=== PATIENT | female | born 1970 | race Caucasian/White ===

== ENCOUNTER 2020-12-14 13:17 | Observation (INO) ==
[2020-12-14] MEDS ORDERED: Perflutren Lipid Microsphere 1.3 ML in 0.9 % Sodium Chloride 8.7 ML IVP PRN (16:14)
[2020-12-14] MEDS ORDERED: Naloxone 0.4 MG/ML INJ IVP PRN (16:14)
[2020-12-14] MEDS ORDERED: Ondansetron ODT 4 MG TAB.RAPDIS SL PRN (16:14)
[2020-12-14] MEDS ORDERED: Mag Hydrox/Al Hydrox/Simeth 30 ML UDC PO PRN (16:14)
[2020-12-14] MEDS ORDERED: MOM Conc 10 ML UD.LIQ PO PRN (16:14)
[2020-12-14] MEDS: Acetaminophen 325 MG TABLET PO PRN ×2 (17:56→22:53)
[2020-12-15 04:52] LABS: Hematocrit 41.4 % (35.3-44.9); Hemoglobin 13.5 g/dL (11.5-15.4); Mean Corpuscular HGB Conc 32.6 g/dL (31.6-35.5); Mean Corpuscular Hemoglobin 29.5 pg (28.0-33.3); Mean Corpuscular Volume 90.6 fL (83.0-100.0); Mean Platelet Volume 11.3 fL (9.4-12.4); Platelet Count 240 K/mcL (140-400); Red Blood Count 4.57 M/mcL (3.82-4.97); White Blood Count 5.9 K/mcL (4.3-11.1)
[2020-12-15 05:09] LABS: BUN/Creatinine Ratio 19 (6-26); Blood Urea Nitrogen 18 mg/dL (6-20); Calcium 8.9 mg/dL (8.6-10.3); Carbon Dioxide 27 mEq/L (23-29); Chloride 106 mEq/L (98-107); Glucose 112 mg/dL (70-105); Magnesium 2.1 mg/dL (1.6-2.6); Osmolality,Calculated 293 (280-300); Potassium 4.2 mEq/L (3.5-5.1); Sodium 140 mEq/L (136-145); eGFR For African Americans > 60 (> 60); eGFR For Non-African Americans > 60 (> 60)
[2020-12-15] MEDS ORDERED: *HR* Enoxaparin 40 MG/0.4 ML SYRINGE SQ SCH (06:00)
[2020-12-15] MEDS ORDERED: Regadenoson 0.4 MG/5 ML SYRINGE IVP ONE (06:39)
[2020-12-15] MEDS ORDERED: Aspirin 81 MG TAB.CHEW PO SCH (09:00)
[2020-12-15 09:01] LABS: Chol/HDL Ratio 3.8 (0-4.9); Cholesterol 173 mg/dL (< 200); HDL Cholesterol 46 mg/dL (40-59); LDL Cholesterol,Calculated 103 mg/dL (< 100); Triglycerides 121 mg/dL (< 150)
[2020-12-15 09:22] LABS: Estimated Average Glucose 120 mg/dl; Hemoglobin A1C 5.8 %
[2020-12-15 10:37] VITALS: BP 135/79
== END 2020-12-15 17:45 | disposition home or self-care (01) ==
LOC: 3BNU → SUATTDRO 15:47
PROVIDERS: ADMIT Internal Medicine; ATTEND Internal Medicine

== ENCOUNTER 2022-03-13 09:45 | Observation (INO) ==
[2022-03-13 11:38] LABS: Basophils % 0.6 %; Eosinophils # 0.2 K/mcL (0.0-0.6); Eosinophils % 3.9 %; Immature Granulocytes % 0.4 % (0-4); Lymphocytes # 1.7 K/mcL (0.6-4.6); Lymphocytes % 34.3 %; Mean Corpuscular HGB Conc 32.5 g/dL (31.6-35.5); Mean Corpuscular Volume 89.1 fL (83.0-100.0); Mean Platelet Volume 11.5 fL (9.4-12.4); Monocytes # 0.4 K/mcL (0.0-1.3); Monocytes % 8.1 %; Neutrophils # 2.6 K/mcL (1.6-8.9); Platelet Count 204 K/mcL (140-400); Red Blood Count 4.49 M/mcL (3.82-4.97); Red Cell Distribution Width 13.5 % (11.5-14.5); Segmented Neutrophils % 52.7 %; White Blood Count 4.8 K/mcL (4.3-11.1)
[2022-03-13 11:53] LABS: Calcium 9.4 mg/dL (8.6-10.3); Potassium 3.9 mEq/L (3.5-5.1)
[2022-03-13] MEDS ORDERED: diazePAM 5 MG TABLET PO ONE (12:53)
[2022-03-13] MEDS ORDERED: Metoclopramide 10 MG/2 ML VIAL IVP ONE (14:10)
[2022-03-13] MEDS ORDERED: Iopamidol - 370 500 ML MLS IVP ONE (14:11)
[2022-03-13] MEDS ORDERED: Scopolamine Patch 1.5 MG PATCH.TD72 TD ONE (16:10)
[2022-03-13] MEDS ORDERED: Acetaminophen 325 MG TABLET PO PRN (16:53)
[2022-03-13] MEDS ORDERED: Ondansetron 4 MG/2 ML VIAL IVP PRN (16:53)
[2022-03-13] MEDS ORDERED: Naloxone 0.4 MG/ML INJ IVP PRN (16:53)
[2022-03-14] MEDS ORDERED: *HR* Enoxaparin 40 MG/0.4 ML SYRINGE SQ SCH (06:00)
[2022-03-14 07:12] VITALS: BP 122/80; PULSE 83; TEMP 97.9; O2SAT 92
== END 2022-03-14 12:40 | disposition home or self-care (01) ==
LOC: 3BNU 09:45 → EMEROOARM 09:45 → 3BNU 17:50
PROVIDERS: ADMIT Internal Medicine; ATTEND Internal Medicine

== ENCOUNTER 2022-03-22 10:27 | Observation (INO) ==
[2022-03-22 11:09] LABS: Basophils % 0.4 %; Eosinophils # 0.2 K/mcL (0.0-0.6); Eosinophils % 2.1 %; Hematocrit 44.4 % (35.3-44.9); Hemoglobin 14.4 g/dL (11.5-15.4); Immature Granulocytes % 0.3 % (0-4); Lymphocytes # 1.8 K/mcL (0.6-4.6); Lymphocytes % 24.7 %; Mean Corpuscular HGB Conc 32.4 g/dL (31.6-35.5); Mean Corpuscular Hemoglobin 28.6 pg (28.0-33.3); Mean Corpuscular Volume 88.3 fL (83.0-100.0); Monocytes # 0.4 K/mcL (0.0-1.3); Monocytes % 6.1 %; Neutrophils # 4.8 K/mcL (1.6-8.9); Platelet Count 242 K/mcL (140-400); Red Blood Count 5.03 M/mcL (3.82-4.97); Red Cell Distribution Width 13.3 % (11.5-14.5); Segmented Neutrophils % 66.4 %; White Blood Count 7.2 K/mcL (4.3-11.1)
[2022-03-22 11:28] LABS: BUN/Creatinine Ratio 16 (6-26); Blood Urea Nitrogen 15 mg/dL (6-20); Calcium 10.1 mg/dL (8.6-10.3); Carbon Dioxide 29 mEq/L (23-29); Chloride 103 mEq/L (98-107); Glucose 113 mg/dL (70-105); Osmolality,Calculated 294 (280-300); Potassium 3.4 mEq/L (3.5-5.1); Sodium 141 mEq/L (136-145); Troponin I < 0.03 ng/mL (< 0.04)
[2022-03-22 12:38] LABS: Prothrombin Time 11.2 Seconds (9.4-12.1)
[2022-03-22 12:40] LABS: Activated Partial Thrombo Time 34.6 Seconds (26.0-36.0)
[2022-03-22] MEDS ORDERED: Morphine Sulfate 2 MG/ML SYRINGE IVP ONE ×2 (12:49→16:04)
[2022-03-22] MEDS ORDERED: Ondansetron 4 MG/2 ML VIAL IVP STA (12:49)
[2022-03-22] MEDS ORDERED: 0.9 % Sodium Chloride 1,000 ML IV ONE (12:49)
[2022-03-22] MEDS ORDERED: Famotidine 20 MG/2 ML VIAL IVP ONE ×2 (12:49→21:01)
[2022-03-22 14:11] LABS: Alanine Aminotransferase 9 Units/L (7-52); Albumin 4.2 g/dL (3.5-5.7); Albumin/Globulin Ratio 1.6 (1.1-2.2); Alkaline Phosphatase 76 Units/L (34-104); Aspartate Amino Transferase 13 Units/L (13-39); Bilirubin,Indirect 0.3 mg/dL (0.0-1.0); Bilirubin,Total 0.3 mg/dL (0.3-1.0); Globulin 2.7 g/dL (2.4-3.5); Lipase 15 Units/L (11-82); Total Protein 6.9 g/dL (6.4-8.9)
[2022-03-22] MEDS ORDERED: Piperacillin/Tazobactam 3.375 GM in 0.9 % Sodium Chloride Mini Bag 100 ML IVPB ONE (16:04)
[2022-03-22] MEDS ORDERED: Ondansetron 4 MG/2 ML VIAL IVP PRN ×2 (16:57→18:59)
[2022-03-22] MEDS ORDERED: Naloxone 0.4 MG/ML INJ IVP PRN (16:57)
[2022-03-22] MEDS ORDERED: Morphine Sulfate 2 MG/ML SYRINGE IVP PRN (16:58)
[2022-03-22] MEDS ORDERED: Ketamine HCL *QUVA* 50mg (1mL) SYRINGE ONE (18:55)
[2022-03-22] MEDS ORDERED: Ondansetron 4 MG/2 ML VIAL ONE (18:55)
[2022-03-22] MEDS ORDERED: *HR* FentaNYL (PF) 100 MCG/2 ML VIAL ONE (18:55)
[2022-03-22] MEDS ORDERED: *HR* Midazolam HCl 2 MG/2 ML VIAL ONE (18:55)
[2022-03-22] MEDS ORDERED: *HR* Propofol 200 MG/20 ML VIAL IVP ONE (18:55)
[2022-03-22] MEDS ORDERED: *HR* Rocuronium Bromide 50 MG/5 ML VIAL ONE (18:55)
[2022-03-22] MEDS ORDERED: Lidocaine -MPF 4% 5 ML AMPUL ONE (18:56)
[2022-03-22] MEDS ORDERED: *HR* HYDROmorphone PF 0.5 MG/0.5 ML SYRINGE IVP PRN (18:59)
[2022-03-22] MEDS ORDERED: Acetaminophen IV 1,000 MG/100 ML BAG IVPB ONE ×3 (21:01→21:55)
[2022-03-22] MEDS ORDERED: EPHEDrine sulfate 50 MG/10 ML VIAL IVP ONE (21:50)
[2022-03-22] MEDS: 0.9 % Sodium Chloride 1,000 ML IVC SCH (23:58)
[2022-03-22] MEDS: Piperacillin/Tazobactam 3.375 GM in 0.9 % Sodium Chloride Mini Bag 100 ML IVPB SCH (23:59)
[2022-03-23 03:07] LABS: Basophils % 0.2 %; Eosinophils % 0.2 %; Hematocrit 43.8 % (35.3-44.9); Immature Granulocytes % 0.4 % (0-4); Mean Corpuscular Hemoglobin 28.6 pg (28.0-33.3); Mean Corpuscular Volume 89.6 fL (83.0-100.0); Monocytes # 0.5 K/mcL (0.0-1.3); Monocytes % 3.2 %; Neutrophils # 14.3 K/mcL (1.6-8.9); Platelet Count 226 K/mcL (140-400); Red Blood Count 4.89 M/mcL (3.82-4.97); Red Cell Distribution Width 13.5 % (11.5-14.5)
[2022-03-23 03:17] LABS: White Blood Count 15.9 K/mcL (4.3-11.1)
[2022-03-23 03:29] LABS: Calcium 9.2 mg/dL (8.6-10.3); Potassium 3.1 mEq/L (3.5-5.1)
[2022-03-23] MEDS: Piperacillin/Tazobactam 3.375 GM in 0.9 % Sodium Chloride Mini Bag 100 ML IVPB SCH ×2 (08:00→16:26)
[2022-03-23] MEDS: 0.9 % Sodium Chloride 1,000 ML IVC SCH (08:02)
[2022-03-23] MEDS ORDERED: *HR* OxyCODONE/APAP 5/325 TABLET PO PRN (09:31)
[2022-03-23] MEDS: *HR* OxyCODONE Immed Rel 5 MG TABLET PO PRN ×2 (10:47→17:08)
[2022-03-23] MEDS ORDERED: Ketorolac 30 MG/ML VIAL IVP ONE (22:33)
[2022-03-24] MEDS: Piperacillin/Tazobactam 3.375 GM in 0.9 % Sodium Chloride Mini Bag 100 ML IVPB SCH (00:50)
[2022-03-24 02:29] LABS: Basophils # 0.1 K/mcL (0.0-0.2); Basophils % 0.4 %; Eosinophils % 0.1 %; Hematocrit 33.8 % (35.3-44.9); Immature Granulocytes % 0.4 % (0-4); Lymphocytes # 1.8 K/mcL (0.6-4.6); Lymphocytes % 14.2 %; Mean Corpuscular HGB Conc 31.7 g/dL (31.6-35.5); Mean Corpuscular Hemoglobin 28.3 pg (28.0-33.3); Mean Corpuscular Volume 89.4 fL (83.0-100.0); Mean Platelet Volume 12.4 fL (9.4-12.4); Monocytes % 7.7 %; Platelet Count 194 K/mcL (140-400); Red Blood Count 3.78 M/mcL (3.82-4.97); Red Cell Distribution Width 13.9 % (11.5-14.5); Segmented Neutrophils % 77.2 %; White Blood Count 12.9 K/mcL (4.3-11.1)
[2022-03-24 02:49] LABS: Hemoglobin 10.7 g/dL (11.5-15.4)
[2022-03-24 02:51] LABS: Albumin 3.4 g/dL (3.5-5.7); Albumin/Globulin Ratio 1.4 (1.1-2.2); Bilirubin,Total 0.2 mg/dL (0.3-1.0); Calcium 8.5 mg/dL (8.6-10.3); Globulin 2.4 g/dL (2.4-3.5); Total Protein 5.8 g/dL (6.4-8.9)
[2022-03-24] MEDS: *HR* OxyCODONE Immed Rel 5 MG TABLET PO PRN (03:38)
[2022-03-24 07:08] VITALS: BP 106/68; PULSE 58; TEMP 97.6; O2SAT 95
[2022-03-24] MEDS ORDERED: Ipratropium/Albuterol Neb 3 ML IH PRN (07:43)
[2022-03-24] MEDS ORDERED: Rizatriptan Benzoate [Rizatriptan] 10 MG Tab.Rapdis PO PRN (07:43)
[2022-03-24] MEDS ORDERED: Fluticasone Propionate Nasal 50 MCG/SPRAY BOTTLE NS PRN (07:43)
[2022-03-24] MEDS ORDERED: modafiniL 100 MG TABLET PO SCH (08:00)
[2022-03-24] MEDS ORDERED: Metoprolol XL (24 HR) Succ 25 MG TAB.ER.24H PO SCH (09:00)
[2022-03-24] MEDS ORDERED: Gabapentin 400 MG CAPSULE PO SCH (09:00)
[2022-03-24] MEDS ORDERED: BuPROPion XL (24 HR) 150 MG TABLET PO SCH (09:00)
[2022-03-24] MEDS ORDERED: Aspirin 81 MG TAB.CHEW PO SCH (09:00)
[2022-03-24] MEDS ORDERED: SODIUM OXYBATE PO SCH (09:00)
[2022-03-24] MEDS ORDERED: Budesonide/Formoterol 160/4.5 1 PUFF INH IH SCH (10:00)
== END 2022-03-24 09:47 | disposition home or self-care (01) ==
LOC: 3BNU 10:27 → EMEROOARM 10:27 → 3BNU 21:07
PROVIDERS: ADMIT Student in an Organized Health Care Education/Training Program; ATTEND Student in an Organized Health Care Education/Training Program